=== PATIENT | female | born 2000 | race Caucasian/White ===

== ENCOUNTER → 2024-10-26 10:46 | Outpatient (REF) | payer OTHER, SELFPAY | LOC: HWRAD 10:46 | PROVIDERS: ATTENDING PHYSICIAN Chiropractor; FAMILY PHYSICIAN Family Medicine | DX: M99.01 Segmental and somatic dysfunction of cervical region (principal); M54.13 Radiculopathy, cervicothoracic region; M99.03 Segmental and somatic dysfunction of lumbar region | CPT/HCPCS: 72052; 72100 ==